=== PATIENT | female | born 1975 | race Caucasian/White ===

== ENCOUNTER → 2017-03-03 | Outpatient (CLI) | payer OTHER ==
--- NOTE | 2017-03-03 19:32 | MG ---
cc: JOSE E ORTIZ M.D. Sex: F DATE OF STUDY: 03/03/2017 Test: 16-679 TECHNIQUE 17 channel EEG. DESCRIPTION The background rhythm is a symmetrical alpha rhythm, frequency is about 9 Hz, amplitude is 20 microvolts. There is some muscle artifact present. There are no lateralizing features seen. There are no epileptiform discharges present. Hyperventilation was done with no change in the background rhythm. Photic results in a normal driving response. The patient appears to fall asleep and sleep spindles are seen with vertex sharp waves. This is normal sleep activity. INTERPRETATION This is a normal EEG. MD ARNULFO Robison/RAMSEY /7:13 PM /7:31 PM
== END ==
LOC: HEEG 08:10
PROVIDERS: ATTEND Specialist
DX: R41.3 Other amnesia (principal)
CPT/HCPCS: 95819